=== PATIENT | female | born 1990 | race Caucasian/White ===

== ENCOUNTER 2016-08-12 16:57 | Emergency (ER) | payer MEDICAID, OTHER ==
[2016-08-12] MEDS ORDERED: NS 0.9% 1000 ML* 1,000 ML IV SCH (18:15)
--- NOTE | 2016-08-12 18:50 | RAD ---
Indication: TB exposure. 2 views of the chest including dual energy PA views demonstrate no mediastinal shift. Heart is of normal size and configuration. Lung greene appear clear. IMPRESSION: No active cardiopulmonary disease is noted.
[2016-08-12] MEDS ORDERED: PPD test dose* 5 TU/0.1 ML TEST (*USE PPD ORDER SET*) INTRADERM ONE (19:09)
[2016-08-12] MEDS ORDERED: LORazepam TAB(*) 1 MG PO ONE ×2 (19:28→21:06)
[2016-08-12 20:27] LABS: ALT 8 U/L (7-52); AST 17 U/L (13-39); Albumin 4.9 g/dL (3.2-5.2); Alkaline Phosphatase 44 U/L (34-104); Anion Gap 10 mmol/L (2-11); Blood Urea Nitrogen 7 mg/dL (6-24); C Reactive Protein < 1.00 mg/L (< 5.00); CO2 Carbon Dioxide 22 mmol/L (22-32); Chloride 109 mmol/L (101-111); EGFR African American 99.9 (>60); EGFR Non-African American 77.7 (>60); Glucose 93 mg/dL (70-100); Lipase 29 U/L (11.0-82.0); Potassium 3.7 mmol/L (3.5-5.0); Sodium 141 mmol/L (133-145); Total Protein 7.9 g/dL (6.4-8.9)
[2016-08-12 20:43] LABS: Hematocrit 37 % (35-47); Hemoglobin 12.5 g/dl (12.0-16.0); Mean Corpuscular HGB Conc 33 g/dl (31-36); Mean Corpuscular Hemoglobin 32 pg (27-31); Mean Corpuscular Volume 95 fL (80-97); Mean Platelet Volume 9 um3 (7.4-10.4); Red Blood Count 3.91 10^6/ul (4.0-5.4); Red Cell Distribution Width 13 % (10.5-15); White Blood Count 6.6 10^3/ul (3.5-10.8)
--- NOTE | 2016-08-12 21:06 | ED ---
Ramakrishna Willams Auryana, scribed for Shani Clifford MD on 08/12/16 at 1909 . Influenza-Like Illness - HPI Summary HPI Summary: 26 year old female presents with severe headache and malaise starting 5 days ago. She also has fever (low grade), mild cough, diffuse arthralgia, increased fatigue, stiff neck, and lethargy. She denies fevers, or any vomiting. 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 Patient does report exposure TB - friend had TB and was coughing up blood near face and patient was taking care of him. Last exposure 6 days ago. PMHx is significant for low BP, IBS, but denies any DM. She has no PCP and lives alone. - History of Current Complaint Chief Complaint: EDGeneral Time Seen by Provider: 08/12/16 19:03 Hx Obtained From: Patient Onset/Duration: Gradual Onset, Lasting Days - 5, Still Present Severity: Moderate Associated Signs & Symptoms: Fever, T Max - 100, F/C - F, Myalgia, Cough, Headache Related Hx: Possible Flu/Infectious Exposure - TB exposure - SEE HPI - Allergy/Home Medications Allergies/Adverse Reactions: Allergies Allergy/AdvReac Type Severity Reaction Status Date / Time No Known Allergies Allergy Verified 08/12/16 18:29 PMH/Surg Hx/FS Hx/Imm Hx Infectious Disease History: No Infectious Disease History: Denies: Traveled Outside the [place] in Last 30 Days - Family History Known Family History: Negative: Seizure Disorder - Social History Occupation: Employed Full-time - other Lives: Alone Alcohol Use: Rare Hx Substance Use: Yes Substance Use Type: Reports: Marijuana Hx Tobacco Use: Yes Smoking Status (MU): Current Every Day Smoker Review of Systems Positive: Fever, Fatigue Eyes: Negative ENT: Negative Cardiovascular: Negative Positive: Cough - mild Gastrointestinal: Negative Genitourinary: Negative Positive: Arthralgia - diffuse, Other - stiff neck Skin: Negative Positive: Headache Psychological: Normal All Other Systems Reviewed And Are Negative: Yes Physical Exam - Summary Physical Exam Summary: General: Well appearing, no pain distress Skin: Warm, Skin Color Reflects Adequate Perfusion, Dry Eyes: EOMI, GAGAN ENT: Pharynx normal, TMs normal Neck: Supple, nontender Respiratory: CTA, breath sounds present, no rhonchi, no wheezes, no rales Cardiovascular: RRR, no murmur, no rub, no gallop Abdomen: Soft, nontender, Non-distended, no guarding, no rebound Bowel: Present Musculoskeletal: JAYLEN, No edema Neuro: Sensory/motor intact, A&Ox3, CN intact 2-12 Psych: Affect/mood appropriate Triage Information Reviewed: Yes Vital Signs On Initial Exam: Initial Vitals Temp Pulse Resp BP Pulse Ox 98.8 F 51 16 114/68 97 08/12/16 17:00 08/12/16 17:00 08/12/16 17:00 08/12/16 17:00 08/12/16 17:00 Vital Signs Reviewed: Yes - Leonides Coma Scale Coma Scale Total: 15 Diagnostics - Vital Signs Vital Signs Temp Pulse Resp BP Pulse Ox 08/12/16 17:52 18 08/12/16 17:00 98.8 F 51 16 114/68 97 - Laboratory Lab Results: Lab Results 08/12/16 08/12/16 08/12/16 Range/Units 19:55 19:55 20:35 WBC (3.5-10.8) 10^3/ul RBC (4.0-5.4) 10^6/ul Hgb (12.0-16.0) g/dl Hct (35-47) % MCV (80-97) fL MCH (27-31) pg MCHC (31-36) g/dl RDW (10.5-15) % Plt Count (150-450) 10^3/ul MPV (7.4-10.4) um3 Neut % (Auto) (38-83) % Lymph % (Auto) (25-47) % [place] % (Auto) (1-9) % Eos % (Auto) (0-6) % Baso % (Auto) (0-2) % Absolute Neuts (auto) (1.5-7.7) 10^3/ul Absolute Lymphs (auto) (1.0-4.8) 10^3/ul Absolute Monos (auto) (0-0.8) 10^3/ul Absolute Eos (auto) (0-0.6) 10^3/ul Absolute Basos (auto) (0-0.2) 10^3/ul Absolute Nucleated RBC 10^3/ul Nucleated RBC % Sodium 141 (133-145) mmol/L Potassium 3.7 (3.5-5.0) mmol/L Chloride 109 (101-111) mmol/L Carbon Dioxide 22 (22-32) mmol/L Anion Gap 10 (2-11) mmol/L BUN 7 (6-24) mg/dL Creatinine 0.88 (0.51-0.95) mg/dL Est GFR ( Amer) 99.9 (>60) Est GFR (Non-Af Amer) 77.7 (>60) BUN/Creatinine Ratio 8.0 (8-20) Glucose 93 (70-100) mg/dL Lactic Acid 1.7 (0.5-2.0) mmol/L Calcium 10.0 (8.6-10.3) mg/dL Total Bilirubin 0.40 (0.2-1.0) mg/dL AST 17 (13-39) U/L ALT 8 (7-52) U/L Alkaline Phosphatase 44 (34-104) U/L C-Reactive Protein < 1.00 (< 5.00) mg/L Total Protein 7.9 (6.4-8.9) g/dL Albumin 4.9 (3.2-5.2) g/dL Globulin 3.0 (2-4) g/dL Albumin/Globulin Ratio 1.6 (1-3) Lipase 29 (11.0-82.0) U/L TSH 3.93 (0.34-5.60) mcIU/mL 08/12/16 Range/Units 20:35 WBC 6.6 (3.5-10.8) 10^3/ul RBC 3.91 L (4.0-5.4) 10^6/ul Hgb 12.5 (12.0-16.0) g/dl Hct 37 (35-47) % MCV 95 (80-97) fL MCH 32 H (27-31) pg MCHC 33 (31-36) g/dl RDW 13 (10.5-15) % Plt Count 214 (150-450) 10^3/ul MPV 9 (7.4-10.4) um3 Neut % (Auto) 65.9 (38-83) % Lymph % (Auto) 23.3 L (25-47) % [place] % (Auto) 7.3 (1-9) % Eos % (Auto) 1.7 (0-6) % Baso % (Auto) 1.8 (0-2) % Absolute Neuts (auto) 4.3 (1.5-7.7) 10^3/ul Absolute Lymphs (auto) 1.5 (1.0-4.8) 10^3/ul Absolute Monos (auto) 0.5 (0-0.8) 10^3/ul Absolute Eos (auto) 0.1 (0-0.6) 10^3/ul Absolute Basos (auto) 0.1 (0-0.2) 10^3/ul Absolute Nucleated RBC 0 10^3/ul Nucleated RBC % 0 Sodium (133-145) mmol/L Potassium (3.5-5.0) mmol/L Chloride (101-111) mmol/L Carbon Dioxide (22-32) mmol/L Anion Gap (2-11) mmol/L BUN (6-24) mg/dL Creatinine (0.51-0.95) mg/dL Est GFR ( Amer) (>60) Est GFR (Non-Af Amer) (>60) BUN/Creatinine Ratio (8-20) Glucose (70-100) mg/dL Lactic Acid (0.5-2.0) mmol/L Calcium (8.6-10.3) mg/dL Total Bilirubin (0.2-1.0) mg/dL AST (13-39) U/L ALT (7-52) U/L Alkaline Phosphatase (34-104) U/L C-Reactive Protein (< 5.00) mg/L Total Protein (6.4-8.9) g/dL Albumin (3.2-5.2) g/dL Globulin (2-4) g/dL Albumin/Globulin Ratio (1-3) Lipase (11.0-82.0) U/L TSH (0.34-5.60) mcIU/mL Result Diagrams: 08/12/16 20:35 08/12/16 19:55 Lab Statement: Any lab studies that have been ordered have been reviewed, and results considered in the medical decision making process. - Radiology CXR Xray Interpretation: No Acute Changes Radiology Interpretation Completed By: Radiologist Re-Evaluation - Re-Evaluation First Eval Re-Evaluation Time: 21:01 - dicussed discharge - feels much better Change: Improved Flu Symptom Course/Dx - Course Course Of Treatment: 26 yo female with complaint of joint aches and fatique for a few days. 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 Pt is often outside and has noted tick bites in the past. Pt feels much better after fluids. she does not live in the area and does not have access to care as an outpt, if her symptoms continue she will call and get her lyme titer results done today and may start doxy that was called into her home pharmacy - Diagnoses Provider Diagnoses: Malaise and fatigue Discharge - Discharge Plan Condition: Stable Disposition: HOME Prescriptions: DOXYcycline CAP(*) [DOXYcycline 100MG CAP(*)] 100 mg PO BID #28 cap DOXYcycline CAP(*) [DOXYcycline 100MG CAP(*)] 100 mg PO BID #28 cap Patient Education Materials: Doxycycline (By mouth), Fatigue (ED) Referrals: Non Staff,Doctor [Primary Care Provider] - 2 Days The documentation as recorded by the Ramakrishna cunningham Auryana accurately reflects the service I personally performed and the decisions made by me, Shani Clifford MD.
[2016-08-12 21:37] LABS: Urine Bacteria 3+ (Absent); Urine Bilirubin Negative (Negative); Urine Glucose Negative (Negative); Urine Nitrite Negative (Negative)
[2016-08-12 21:55] VITALS: BP 103/58
[2016-08-15 12:46] LABS: B garinii/B afzelii PCR Negative (Negative); B mayonii PCR Negative (Negative)
== END 2016-08-12 22:02 | disposition home or self-care (01) ==
LOC: ED 16:57
DX: R53.83 Other fatigue (principal); R53.81 Other malaise; R51 Headache; R50.9 Fever, unspecified; R05 Cough; F17.210 Nicotine dependence, cigarettes, uncomplicated
CPT/HCPCS: 36415; 71020; 80053; 81003; 81015; 83605; 83690; 84443; 85025; 86140; 87086; 87476; 87798; 99283; A9270-GY

== ENCOUNTER 2018-04-20 06:02 | Day surgery (SDC) | payer BC, OTHER ==
[~2018-04-20 06:02] MED LIST: Buffered Lidocaine 1% SYRIN* 1 ML/SYRINGE INTRADERM ONE; Dexamethasone IV* 4 MG/ML 1 ML (4 MG) IV SLOW PU ONE; Famotidine IV* 10 MG/ML 2 ML (20 mg) IV ONE; Lactated Ringers 1000 ML Bag* 1,000 ML IV SCH
[2018-04-20] MEDS ORDERED: Bupivacaine 0.5%* 50 ML VIAL ONE (06:37)
[2018-04-20] MEDS ORDERED: Methylene Blue 0.5 %* 50 MG/10 ML AMP IV ONE (06:37)
[2018-04-20] MEDS ORDERED: EPINEPHRINE 1 MG/ML 1 ML VIAL ONE (06:37)
[2018-04-20] MEDS ORDERED: Lidocaine 2% PF* 10 ML AMP ONE (06:38)
[2018-04-20] MEDS ORDERED: Famotidine IV* 10 MG/ML 2 ML (20 mg) ONE (07:00)
[2018-04-20] MEDS ORDERED: Scopolamine 1.5 mg* PATCH ONE (07:00)
[2018-04-20] MEDS ORDERED: Ondansetron INJ* 2 MG/ML VIAL ONE ×2 (07:00→08:58)
[2018-04-20] MEDS ORDERED: Dexamethasone IV* 4 MG/ML 1 ML (4 MG) ONE (07:00)
[2018-04-20] MEDS ORDERED: ceFAZolin 2 GM in NS PREMIX(*) 2 GM/100 ML BAG IVPB ONE (07:01)
[2018-04-20] MEDS ORDERED: Buffered Lidocaine 1% SYRIN* 1 ML/SYRINGE INTRADERM ONE (07:06)
[2018-04-20] MEDS ORDERED: fentaNYL* 50 MCG/ML 5 ML VIAL (250 MCG VIAL) ONE (07:14)
[2018-04-20] MEDS ORDERED: Rocuronium* 10 MG/ML VIAL ONE (07:14)
[2018-04-20] MEDS ORDERED: Midazolam* 1 MG/ML 5 ML VIAL (5 MG) ONE (07:14)
[2018-04-20] MEDS ORDERED: Propofol* 10 MG/ML 20 ML BTL ONE (07:15)
[2018-04-20] MEDS ORDERED: Lidocaine 2% PF * 5 ML VIAL ONE (07:16)
[2018-04-20] MEDS ORDERED: Ketorolac INJ* 30 MG/ML 1 ML VIAL IV PRN (07:30)
[2018-04-20] MEDS ORDERED: Acetaminophen TAB* 325 MG PO PRN (07:30)
[2018-04-20] MEDS ORDERED: DiMENhydriNATE IV* 50 MG/ML VIAL IV PUSH PRN (07:30)
[2018-04-20] MEDS ORDERED: HYDROcodone/ACETAMIN 5-325 MG* 1 TAB PO PRN (07:30)
[2018-04-20] MEDS ORDERED: fentaNYL* 50 MCG/ML 2 ML VIAL (100 MCG VIAL) IV PRN (07:30)
[2018-04-20] MEDS ORDERED: Naloxone* 0.4 MG/ML 1 ML VIAL IV PRN (07:30)
[2018-04-20] MEDS ORDERED: Morphine VIAL* 4 MG/ML VIAL (1 ml vial) IV PRN (07:30)
[2018-04-20] MEDS ORDERED: Lidocain 1% EPI 1:100,000 * 30 ML MDV ONE (07:43)
[2018-04-20] MEDS ORDERED: Bupivacaine 0.25% SDV PF* 10 ML VIAL INJ ONE (07:43)
[2018-04-20] MEDS ORDERED: EPHEDrine (Pressors)* 50 MG/ML VIAL ONE (08:17)
[2018-04-20] MEDS ORDERED: Ketorolac INJ* 30 MG/ML 1 ML VIAL ONE (10:14)
[2018-04-20] MEDS ORDERED: fentaNYL* 50 MCG/ML 2 ML VIAL (100 MCG VIAL) ONE (10:19)
[2018-04-20] MEDS ORDERED: HYDROcodone/ACETAMIN 5-325 MG* 1 TAB ONE (11:04)
[2018-04-20] MEDS ORDERED: DiMENhydriNATE IV* 50 MG/ML VIAL ONE (11:19)
[2018-04-20] MEDS ORDERED: PROCHLORPERAZINE INJ 5 MG/ML 2 ML VIAL IV ONE (12:19)
[2018-04-20 12:34] VITALS: BP 113/62
== END 2018-04-20 12:57 | disposition home or self-care (01) ==
LOC: OR 06:02
PROVIDERS: ATTEND Plastic Surgery
DX: Z41.1 Encounter for cosmetic surgery (principal); K58.9 Irritable bowel syndrome, unspecified; Z87.891 Personal history of nicotine dependence
CPT/HCPCS: 81025; A9270-GY; J0690; J1100; J1240; J1885; J2001; J2250; J2405; J2704; J3010; J3490